=== PATIENT | male | born 1965 | race Caucasian/White ===

== ENCOUNTER 2020-03-30 10:55 | Observation (INO) | payer BC, SELFPAY ==
[2020-03-30] VITALS (7 sets, daily range): BP systolic 122–174; BP diastolic 75–106; PULSE 85–104; RESP 16–18; TEMP 36.4–36.9; O2SAT 96–100; BMI 40.0; BMI 39.5
--- NOTE | 2020-03-30 11:04 | EKG12_ITS ---
Test Reason : HYEPRGLYCEMIA Blood Pressure : / mmHG Vent. Rate : 091 BPM Atrial Rate : 091 BPM P-R Int : 198 ms QRS Dur : 092 ms QT Int : 350 ms P-R-T Axes : 017 016 -03 degrees QTc Int : 430 ms Normal sinus rhythm Inferior infarct , age undetermined Abnormal ECG Confirmed by ATUL CASTRO, HANDY ([id number]), news video editor JEAN MCPHERSON ([id number]) on 04/03/2020 9:33:20 AM Referred By: MARI Confirmed By:HANANE POLLARD MD
--- NOTE | 2020-03-30 11:06 | ED.VIS.GEN ---
History of Present Illness Chief Complaint: Hyperglycemia Informant: Patient Onset: Days Context: Gradual Onset Timing: Continuous Current Severity: Moderate Maximum Severity: Moderate Narrative: The patient is a 54-year-old male with medical history significant for hypercholesterolemia and hypertension that presents to the emergency department with 30 pound weight loss, increased thirst, blurry vision, and increased urination. The patient was actually seen in the office by his primary care today. With his complaints, blood sugar was obtained. It was too high to measure. The patient was sent over for further evaluation. He denies any fevers or chills. He states that he has been mildly nauseated but has been trying to eat and drink. He states that over the past 3 weeks, he had a 30 pound weight loss. He has had impaired fasting glucose, but is never required any diabetic medication. He states he is otherwise been in his normal state of health. Prior similar symptoms: No Recent Illness/Hospitalization: No Past Medical History - Allergies and Home Meds Allergies/Adverse Reactions: Allergies No Known Allergies Allergy (Verified 03/30/20 12:12) Prior records reviewed: Yes Past Medical History: - - Hypertension, hyperlipidemia Surgical History: noncontributory Review of Systems General: Denies: Chills, Fever, Sweats Eyes: Denies: Visual changes - bilaterally, Diplopia ENT: Denies: Rhinorrhea, Sore throat Cardiovascular: Denies: Chest pain, Palpitations Respiratory: Denies: Dyspnea, Cough, Dyspnea on exertion Gastrointestinal: Denies: Abdominal pain, Nausea, Vomiting, Diarrhea, Melena, Hematochezia Genitourinary: Denies: Dysuria, Hematuria, Frequency Musculoskeletal: Denies: Back pain, Extremity Pain Skin: Denies: Rash, Wounds Neurological: Denies: Headache, Weakness, Numbness Endocrine: Reports: Polyuria, Polydipsia Physical Exam Vital Signs/Narrative: Vital Signs Temp Pulse Resp BP Pulse Ox 03/30/20 10:56 97.6 F L 98 16 122/86 H 97 Inital Vital Signs reviewed: Yes General: Well nourished, Well developed, No Acute Distress Head: Normocephalic, Atraumatic Eyes: Perrl, EOMI ENT: Moist mucous membranes, No rhinorrhea Neck: Supple, Nontender Cardiovascular: Regular rate, Regular rhythm, No murmurs Respiratory: No distress, CTA bilaterally, Chest nontender Abdomen: Soft, Nontender, Nondistended, Normal bowel sounds Back: Nontender, Normal Inspection Extremities: Nontender, No edema Skin: Normal color, No rash Neurological: Alert, Oriented x3, Cranial nerves II-XII grossly intact, Normal Strength, Normal Sensation Psychological: Normal affect, Normal Mood Diagnostic/Tx/Re-eval Abnormal Lab Results 03/30/20 03/30/20 03/30/20 11:35 11:35 11:35 WBC 20.7 H RBC 5.31 Hgb 16.4 Hct 45.3 MCV 85.3 MCH 30.9 MCHC 36.2 H RDW Std Deviation 36.1 RDW Coeff of Shweta 11.7 Plt Count 317 MPV 13.5 H Immature Gran % (Auto) 0.700 Neut % (Auto) 80.6 H Lymph % (Auto) 11.2 L [place] % (Auto) 7.1 Eos % (Auto) 0.0 Baso % (Auto) 0.4 Absolute Neuts (auto) 16.7 H Absolute Lymphs (auto) 2.32 Nucleated RBC % 0 Sodium 122 L Potassium 4.1 Chloride 87 L Carbon Dioxide 21.0 Anion Gap 14 BUN 29 H Creatinine 1.61 H Estim Creat Clear Calc 56.23 Est GFR (MDRD) Af Amer 57 L Est GFR (MDRD) Non-Af 47 L BUN/Creatinine Ratio 18.0 Glucose 582 H* Lactic Acid 2.6 H* Calcium 10.2 H Total Bilirubin 1.30 H AST 28 ALT 67 H Alkaline Phosphatase 75 Total Protein 8.2 Albumin 4.4 Globulin 3.8 Albumin/Globulin Ratio 1.2 Urine Color Urine Clarity Urine pH Ur Specific [place] Urine Protein Urine Glucose (UA) Urine Ketones Urine Occult Blood Urine Nitrite Urine Bilirubin Urine Urobilinogen Ur Leukocyte Esterase Urine RBC Urine WBC Ur Squamous Epith Cells Urine Bacteria Urine Mucus Acetone Level 03/30/20 03/30/20 11:35 11:40 WBC RBC Hgb Hct MCV MCH MCHC RDW Std Deviation RDW Coeff of Shweta Plt Count MPV Immature Gran % (Auto) Neut % (Auto) Lymph % (Auto) [place] % (Auto) Eos % (Auto) Baso % (Auto) Absolute Neuts (auto) Absolute Lymphs (auto) Nucleated RBC % Sodium Potassium Chloride Carbon Dioxide Anion Gap BUN Creatinine Estim Creat Clear Calc Est GFR (MDRD) Af Amer Est GFR (MDRD) Non-Af BUN/Creatinine Ratio Glucose Lactic Acid Calcium Total Bilirubin AST ALT Alkaline Phosphatase Total Protein Albumin Globulin Albumin/Globulin Ratio Urine Color Yellow Urine Clarity Sl. Cloudy Urine pH 6.0 Ur Specific [place] 1.015 Urine Protein Negative Urine Glucose (UA) 1000 H Urine Ketones 50 H Urine Occult Blood Negative Urine Nitrite Negative Urine Bilirubin Negative Urine Urobilinogen Normal Ur Leukocyte Esterase Negative Urine RBC 0 SEEN Urine WBC 0 SEEN Ur Squamous Epith Cells 0-5 SEEN Urine Bacteria 0 SEEN Urine Mucus 0 SEEN Acetone Level SMALL H - Medical Decision Making The patient presents with likely new onset diabetes. His blood sugar was too high to be read in the office. He has had polydipsia, polyuria, and generalized malaise along with weight loss. Metabolic work-up was pursued. Patient does have an elevated blood sugar of almost 600. He has a pseudohyponatremia. Is evidence of mild renal insufficiency and elevated lactic acid which I feel is likely prerenal from dehydration. Patient was given 2 L of IV fluids. EKG shows no acute ischemia. With the patient's electrolyte abnormalities and new onset diabetes, I do feel that he would benefit from admission for insulin therapy and rehydration. The patient was discussed with the hospitalist. Impression 1. New onset diabetes 2. Acute kidney injury 3. Lactic acidosis
[2020-03-30 11:57] LABS: Absolute Lymphocyte Count 2.32 X10^3/uL (0.83-4.51); Absolute Neutrophil Count 16.7 X10^3/uL (2.0-7.7); Basophil# 0.08 X10^3/uL; Basophil% 0.4 % (0-1); Hematocrit 45.3 % (40-54); Hemoglobin 16.4 g/dL (13.0-16.5); Lymphocyte # 2.32 X10^3/ul (4.0); Lymphocyte % 11.2 % (19-41); Mean Corp Hgb Conc 36.2 g/dL (32-36); Mean Corpuscular Hgb 30.9 pg (27.0-32.0); Mean Corpuscular Volume 85.3 fL (80-94); Mean Platelet Vol. 13.5 fl (6.2-12.0); Monocyte# 1.48 X10^3/uL; Monocyte% 7.1 % (0-10); NRBC Flagged by Analyzer 0 % (0-5); Neutrophil # 16.71 X10^3/uL (2.7-7.7); Neutrophil % 80.6 % (47-70); Platelet Count 317 K/mm3 (150-450); RBC Distribution Width CV 11.7 % (11.6-14.6); RBC Distribution Width SD 36.1 fl (35.1-43.9); Red Blood Count 5.31 M/mm3 (4.6-6.2); White Blood Count 20.7 K/mm3 (4.4-11.0)
[2020-03-30 11:57] LABS: Bacteria 0 SEEN /hpf (None Seen); Mucous, Urine 0 SEEN /hpf (<or=2+); Red Blood Cells-Urine 0 SEEN /hpf (0-5); White Blood Cells 0 SEEN /hpf (0-5)
[2020-03-30 12:02] LABS: Color, Urine Yellow (Yellow); Glucose, Dipstick 1000 mg/dl (Normal); Ketone-Dipstick 50 mg/dl (Negative); Leukocyte Esterase-Dipstick Negative /ul (Negative); Nitrite-Dipstick Negative (Negative); Occult Blood-Urine Negative /ul (Negative); Protein-Dipstick Negative (Negative); Specific Gravity, Urine 1.015 (1.002-1.030); Urine Bilirubin Dipstick Negative (Negative); Urine Clarity Sl. Cloudy (Clear); Urine Urobilinogen Normal (Normal)
[2020-03-30 12:08] LABS: Squamous Epithelial Cells - UA 0-5 SEEN /hpf (0-5)
[2020-03-30] MEDS: 0.9% Normal Saline 1,000 ML 1000 ML IV ×2 (12:16→13:17)
[2020-03-30 12:21] LABS: BUN 29 mg/dL (7-18); Creatinine, Serum 1.61 mg/dL (0.70-1.30); Estimated Creatinine Clearance 56.23 ml/min; Glucose 582 mg/dL (74-106)
[2020-03-30 12:22] LABS: ALB/GLOB Ratio 1.2 RATIO (0.9-2.4); AST(SGOT) 28 U/L (15-37); Alanine Aminotransfer ALT/SGPT 67 U/L (16-61); Albumin, Serum 4.4 g/dL (3.2-5.0); Alkaline Phosphatase 75 U/L (45-117); Anion Gap 14 (5-15); Calcium,Total 10.2 mg/dL (8.5-10.1); Chloride 87 mmol/L (98-107); EST Glomerular Filtration Rate 47 mL/min (>60); Est Glom Filt Rate - Afr Amer 57 mL/min (>60); Globulin 3.8 g/dL (2.2-4.2); Lactic Acid 2.6 mmol/L (0.4-1.9); Potassium 4.1 mmol/L (3.5-5.1); Protein, Total 8.2 g/dL (6.4-8.2); Sodium Level 122 mmol/L (136-145)
[2020-03-30] MEDS: Insulin Lispro 100 UNIT/ML INSULN.PEN 20 UNIT SC (12:45)
--- NOTE | 2020-03-30 13:51 | HP.PCM_ITS ---
Problem List (1) Hyperglycemia Status: Acute History of Present Illness Date of Admission: 03/30/20 Chief Complaint: polyuria The patient is a 54 year old M 3 of diet-controlled diabetes presents with several months of increased polyuria, polydipsia, 30 pound weight loss and fatigue. Was concerned and presented to his primary care physician who had checked his blood sugar and it was unmeasurable so the patient was sent to the emergency room. In the emergency room, the patient's blood sugar was noted to be 22, lactic acid 2.6, anion gap was normal at 14. Urinalysis was unremarkable. Patient received 20 units of NovoLog. [] Past Medical History Medical History: Medical History (Last Updated 03/30/20 @ 13:[address] Armen Arevalo DO) Hyperlipidemia E78.5 HTN (hypertension) I10 Allergies No Known Allergies Allergy (Verified 03/30/20 12:12) Surgical History: noncontributory Smoking Status: Never smoker Tobacco Use: Non-smoker Alcohol: Rare - *Family History Maternal Family History: Family History (Last Updated 03/30/20 @ 13:[address] Armen Arevalo DO) Other Diabetes Review of Systems Constitutional: Reports: Anorexia. Denies: Chills, Fever Eyes: Denies: Blurred vision, Double vision HEENT: Denies: Head Aches, Sinus Congestion, Sinus Drainage Cardiovascular: Denies: Chest Pain, Palpitations Respiratory: Denies: Cough, Shortness of breath at rest, Sputum production Gastrointestinal: Denies: Abdominal Pain, Nausea, Vomiting Genitourinary: Denies: Dysuria Musculoskeletal: Denies: Joint Pain, Joint Tenderness Skin: Denies: Dryness, Lesions Neurological: Denies: Numbness, Tingling, Focal weakness Hematologic/ Lymphatic: Denies: Easy Bruising, Easy Bleeding, Hx of blood clot Comment: All review of systems were negative except as mentioned above in the history of present illness and the other review of systems. VTE Information - Inpt Only VTE Present on Admission: No VTE Mechan Device Prophylaxis: None VTE Pharm Prophylaxis ordered?: No Reason prophylaxis not ordered:: Treatment Not Indicated Patient Problems: Active and Suspected Problems Hyperglycemia (Acute) - Physical Exam Vitals/I&O's: Vital Signs Temp Pulse Resp BP Pulse Ox 36.9 C 104 H 18 152/75 H 100 03/30/20 12:56 03/30/20 12:56 03/30/20 12:56 03/30/20 12:56 03/30/20 12:56 Oxygen Delivery Method Room Air Weight: 133.81 kg Body Mass Index (BMI) 40.0 Finger Stick Blood Glucose 576 Intake and Output for Last 24 Hours 03/28/20 03/29/20 03/30/20 23:59 23:59 23:59 Intake Total 1000 / 1000 Balance 1000 / 1000 General: Alert, No apparent distress HEENT: Atraumatic, Normocephalic Oral: Moist Mucosa, No Gingival or Mucosal Lesions/ Ulcerations Neck: No Nodes, Thyroid Normal Size and Texture Lungs: Clear to auscultation, Normal air movement, No rhonchi, No wheeze, No rales Cardiovascular: Regular rate, Regular Rhythm, Normal S1, Normal S2, No murmurs Abdomen: Bowel Sounds Present, Soft, Non Tender, Non-Distended, No Hepato- splenomegaly Extremities: No edema, No Calf Tenderness Skin: No rashes, No breakdown Musculoskeletal: No Tenderness to Palpation of Joints or Extremities, No Muscle Wasting Psych/Mental Status: Normal Affect, Appropriate Laboratory Results 03/30/20 11:35: WBC 20.7 H, RBC 5.31, Hgb 16.4, Hct 45.3, MCV 85.3, MCH 30.9, MCHC 36.2 H, RDW Std Deviation 36.1, RDW Coeff of Shweta 11.7, Plt Count 317, MPV 13.5 H, Immature Gran % (Auto) 0.700, Neut % (Auto) 80.6 H, Lymph % (Auto) 11.2 L, [place] % (Auto) 7.1, Eos % (Auto) 0.0, Baso % (Auto) 0.4, Absolute Neuts (auto) 16.7 H, Absolute Lymphs (auto) 2.32, Nucleated RBC % 0 03/30/20 11:35: Sodium 122 L, Potassium 4.1, Chloride 87 L, Carbon Dioxide 21.0, Anion Gap 14, BUN 29 H, Creatinine 1.61 H, Estim Creat Clear Calc 56.23, Est GFR (MDRD) Af Amer 57 L, Est GFR (MDRD) Non-Af 47 L, BUN/Creatinine Ratio 18.0, Glucose 582 H*, Calcium 10.2 H, Total Bilirubin 1.30 H, AST 28, ALT 67 H, Alkaline Phosphatase 75, Total Protein 8.2, Albumin 4.4, Globulin 3.8, Albumin/ Globulin Ratio 1.2 03/30/20 11:35: Lactic Acid 2.6 H* 03/30/20 11:35: Acetone Level SMALL H 03/30/20 11:40: Urine Color Yellow, Urine Clarity Sl. Cloudy, Urine pH 6.0, Ur Specific [place] 1.015, Urine Protein Negative, Urine Glucose (UA) 1000 H, Urine Ketones 50 H, Urine Occult Blood Negative, Urine Nitrite Negative, Urine Bilirubin Negative, Urine Urobilinogen Normal, Ur Leukocyte Esterase Negative, Urine RBC 0 SEEN, Urine WBC 0 SEEN, Ur Squamous Epith Cells 0-5 SEEN, Urine Bacteria 0 SEEN, Urine Mucus 0 SEEN Assessment/Plan All Active Problems Hyperglycemia (Acute) 1. Diabetes mellitus type 2, uncontrolled * Not in DKA at present. Received 20 units of NovoLog. * Plan is to continue with prandial insulin plus basal insulin this evening. Check an A1c. Have nutrition discussed the with the patient about dietary recommendations. * 20 to the patient that will need to follow-up with his primary care doctor in regards to further modification of his insulin therapy. Told patient that if he does lose weight and exercises in the future that is possible he could get off of insulin but now be a ways off. 2. hyponatremia * likely pseudohyponatremia given hyperglycemia +/- due to hypovolemia * will give IVF 3. leukocytosis * likely reactive due to uncontrolled DM2 * monitor * UA negative 4. DVT prophylaxis: low risk as he is ambulatory. Inpatient E&M: [id number] Init Hosp L3
[2020-03-30 15:48] LABS: Reflex Lactate? Y
[2020-03-30] MEDS: 0.9% Normal Saline 1,000 ML 150 ML IV ×2 (16:07→22:47)
[2020-03-30 16:16] LABS: Bedside Glucose 372 mg/dL (70-110)
[2020-03-30] MEDS: Insulin Lispro 100 UNIT/ML INSULN.PEN SC ×2 (16:17→16:18)
[2020-03-30 16:24] LABS: Hemoglobin A1c 10.3 % (3.8-5.6)
[2020-03-30 18:31] LABS: Lactic Acid 1.7 mmol/L (0.4-1.9)
[2020-03-30] MEDS: Acetaminophen 325 MG Tablet 650 MG PO (20:11)
[2020-03-30 21:41] LABS: Bedside Glucose 386 mg/dL (70-110)
[2020-03-30] MEDS: Glucerna Shake 120 ML LIQUID PO (21:43)
[2020-03-31 02:31] VITALS: BP 146/84; PULSE 77; RESP 18; TEMP 36.9; O2SAT 98
[2020-03-31] MEDS: 0.9% Saline Lock 10 ML Syringe IV (06:04)
[2020-03-31 06:13] LABS: Absolute Lymphocyte Count 3.25 X10^3/uL (0.83-4.51); Absolute Neutrophil Count 7.6 X10^3/uL (2.0-7.7); Basophil# 0.07 X10^3/uL; Basophil% 0.6 % (0-1); Eosinophil# 0.05 X10^3/uL; Eosinophils% 0.4 % (0-5); Hematocrit 39.8 % (40-54); Hemoglobin 14.3 g/dL (13.0-16.5); Lymphocyte # 3.25 X10^3/ul (4.0); Lymphocyte % 27.2 % (19-41); Mean Corp Hgb Conc 35.9 g/dL (32-36); Mean Corpuscular Volume 86.1 fL (80-94); Mean Platelet Vol. 12.9 fl (6.2-12.0); Monocyte# 0.93 X10^3/uL; Monocyte% 7.8 % (0-10); NRBC Flagged by Analyzer 0 % (0-5); Neutrophil % 63.4 % (47-70); Platelet Count 194 K/mm3 (150-450); RBC Distribution Width CV 11.6 % (11.6-14.6); RBC Distribution Width SD 36.5 fl (35.1-43.9); Red Blood Count 4.62 M/mm3 (4.6-6.2)
[2020-03-31 06:35] LABS: Bedside Glucose 379 mg/dL (70-110)
[2020-03-31 06:39] LABS: Anion Gap 9 (5-15); BUN 22 mg/dL (7-18); BUN/Creat Ratio 19.8 RATIO (10-20); Calcium,Total 8.1 mg/dL (8.5-10.1); Chloride 96 mmol/L (98-107); Creatinine, Serum 1.11 mg/dL (0.70-1.30); EST Glomerular Filtration Rate 73 mL/min (>60); Est Glom Filt Rate - Afr Amer 88 mL/min (>60); Estimated Creatinine Clearance 81.56 ml/min; Glucose 333 mg/dL (74-106); Potassium 3.7 mmol/L (3.5-5.1); Sodium Level 128 mmol/L (136-145)
[2020-03-31] MEDS: Insulin Lispro 100 UNIT/ML INSULN.PEN SC ×4 (08:36→11:50)
[2020-03-31 08:44] VITALS: BP 167/88; PULSE 89; RESP 18; TEMP 37.1; O2SAT 98
--- NOTE | 2020-03-31 09:27 | DS.PCM_ITS ---
Discharge Date and Diagnosis - Problem List Patient Problems: Active and Suspected Problems (Last Updated 03/30/20 @ 13:[address] Armen Arevalo DO) Hyperglycemia (Acute) Date of Admission: 03/30/20 Date of Discharge: 03/31/20 - Primary Discharge Diagnosis Acute Problems: Active Problems (Last Updated 03/30/20 @ 13:[address] Armen Arevalo DO) DM2 uncontrolled Hyponatremia Hospital Course and Treatment Operations: None Procedures: None Summary of Care Provided: The patient is a 54 year old M with weight loss, polyuria and polydipsia. Patient presented with a blood sugar primary care's office that was unreadable so presented to the emergency room where his blood sugar was measured as 2. Patient was not in diabetic ketoacidosis as he had a normal anion gap. Patient received short acting insulin as well as basal insulin blood sugars have improved to the 300s. Plan is to discharge patient with 30 units of insulin glargine as well as 8 units with meals. Patient's hemoglobin A1c was 10.3. Patient will receive glucometer, testing strips, lancets and needles as well as his insulin. Patient did have hyponatremia which component was certainly pseudohyponatremia given the hyperglycemia but not feeling improved today his blood sugar has improved. Component may be attributable to the HCTZ that he takes with his combination lisinopril/HCTZ. Recommend that be discontinued and for him to continue with his lisinopril. A prescription is sent for just the lisinopril. Patient informed that he could go off insulin altogether release have decreased dosing if he does not lose weight and exercise but that will be need to be done with his primary care physician. [] Patient Problems: Active and Suspected Problems (Last Updated 03/30/20 @ 13:[address] Armen Arevalo DO) Hyperglycemia (Acute) - Physical Exam Vitals/I&O's: Vital Signs Temp Pulse Resp BP Pulse Ox 37.1 C 89 18 167/88 H 98 03/31/20 08:44 03/31/20 08:44 03/31/20 08:44 03/31/20 08:44 03/31/20 08:44 Oxygen Delivery Method Room Air Weight: 132.177 kg Body Mass Index (BMI) 39.5 Finger Stick Blood Glucose 576 Intake and Output for Last 24 Hours 03/29/20 03/30/20 03/31/20 23:59 23:59 23:59 Intake Total 3000 / 3500 1500 / 1500 Output Total 1000 / 5 1075 / 1075 Balance 1999 425 / 425 General: Alert, No apparent distress HEENT: Atraumatic, Normocephalic Psych/Mental Status: Normal Affect, Appropriate Laboratory Results 03/30/20 11:35: WBC 20.7 H, RBC 5.31, Hgb 16.4, Hct 45.3, MCV 85.3, MCH 30.9, MCHC 36.2 H, RDW Std Deviation 36.1, RDW Coeff of [place] 11.7, Plt Count 317, MPV 13.5 H, Immature Gran % (Auto) 0.700, Neut % (Auto) 80.6 H, Lymph % (Auto) 11.2 L, [place] % (Auto) 7.1, Eos % (Auto) 0.0, Baso % (Auto) 0.4, Absolute Neuts (auto) 16.7 H, Absolute Lymphs (auto) 2.32, Nucleated RBC % 0 03/30/20 11:35: Sodium 122 L, Potassium 4.1, Chloride 87 L, Carbon Dioxide 21.0, Anion Gap 14, BUN 29 H, Creatinine 1.61 H, Estim Creat Clear Calc 56.23, Est GFR (MDRD) Af Amer 57 L, Est GFR (MDRD) Non-Af 47 L, BUN/Creatinine Ratio 18.0, Glucose 582 H*, Calcium 10.2 H, Total Bilirubin 1.30 H, AST 28, ALT 67 H, Alkaline Phosphatase 75, Total Protein 8.2, Albumin 4.4, Globulin 3.8, Albumin/Globulin Ratio 1.2 03/30/20 11:35: Lactic Acid 2.6 H* 03/30/20 11:35: Acetone Level SMALL H 03/30/20 11:35: Hemoglobin A1c 10.3 H 03/30/20 11:40: Urine Color Yellow, Urine Clarity Sl. Cloudy, Urine pH 6.0, Ur Specific [place] 1.015, Urine Protein Negative, Urine Glucose (UA) 1000 H, Urine Ketones 50 H, Urine Occult Blood Negative, Urine Nitrite Negative, Urine Bilirubin Negative, Urine Urobilinogen Normal, Ur Leukocyte Esterase Negative, Urine RBC 0 SEEN, Urine WBC 0 SEEN, Ur Squamous Epith Cells 0-5 SEEN, Urine Bacteria 0 SEEN, Urine Mucus 0 SEEN 03/30/20 16:11: POC Glucose 372 H 03/30/20 17:55: Lactic Acid 1.7 03/30/20 21:37: POC Glucose 386 H 03/31/20 05:54: WBC 12.0 H, RBC 4.62, Hgb 14.3, Hct 39.8 L, MCV 86.1, MCH 31.0, MCHC 35.9, RDW Std Deviation 36.5, RDW Coeff of Shweta 11.6, Plt Count 194, MPV 12.9 H, Immature Gran % (Auto) 0.600, Neut % (Auto) 63.4, Lymph % (Auto) 27.2, [place] % (Auto) 7.8, Eos % (Auto) 0.4, Baso % (Auto) 0.6, Absolute Neuts (auto) 7.6, Absolute Lymphs (auto) 3.25, Nucleated RBC % 0 03/31/20 05:54: Sodium 128 L, Potassium 3.7, Chloride 96 L, Carbon Dioxide 23.0, Anion Gap 9, BUN 22 H, Creatinine 1.11, Estim Creat Clear Calc 81.56, Est GFR (MDRD) Af Amer 88, Est GFR (MDRD) Non-Af 73, BUN/Creatinine Ratio 19.8, Glucose 333 H, Calcium 8.1 L 03/31/20 06:28: POC Glucose 379 H Current Medications Acetaminophen (Tylenol) 650 mg PO Q6H PRN PRN PRN Reason: Pain Score 1-10/Temp > 100.7 F Last Admin: 03/30/20 20:11 Dose: 650 mg Documented by: Dextrose (D50w Syringe) 0 gm IV X1 PRN; Protocol PRN Reason: Hypoglycemia Glucagon () 1 mg IM .X1 PRN PRN Reason: Hypoglycemia Sodium Chloride () 250 mls @ 15 mls/hr IV .[id number] PRN PRN Reason: Saline Flush Sodium Chloride () 250 mls @ 15 mls/hr IV .[id number] PRN PRN Reason: Additional IVPB Infusion Ibuprofen (Motrin) 400 mg PO Q4H PRN PRN PRN Reason: Pain Score 1-10/Temp > 100.7 F Insulin Glargine (Lantus (Bkc)) 20 units SC QHS [facility] Last Admin: 03/30/20 21:43 Dose: 20 u Documented by: Insulin Human Lispro (Humalog Kwikpen (Bkc)) 5 unit SC BREAKFAST [facility] Last Admin: 03/31/20 08:36 Dose: 5 units Documented by: Insulin Human Lispro (Humalog Kwikpen (Bkc)) 5 unit SC DINNER [facility] Last Admin: 03/30/20 16:17 Dose: 5 u Documented by: Insulin Human Lispro (Humalog Kwikpen (Bkc)) 5 unit SC LUNCH KRISTIN Insulin Human Lispro (Humalog Kwikpen (Bkc)) 0 unit SC TIDAC [facility]; Protocol Last Admin: 03/31/20 08:37 Dose: 6 u Documented by: Nutritional Formula (Lactose Free) (Glucerna Shake) 120 ml PO 4X/DAY [facility] Last Admin: 03/30/20 21:43 Dose: 120 ml Documented by: Ondansetron HCl (Zofran) 4 mg IV Q8H PRN PRN PRN Reason: NAUSEA/VOMITING Sodium Chloride () 10 - 40 ml IV UD PRN PRN Reason: SALINE FLUSH Last Admin: 03/31/20 06:04 Dose: 10 ml Documented by: Discharge Diet: 1800 Calorie Control Diet Home Medications: Medications to take at Discharge Simvastatin [Zocor] 10 mg PO QHS 03/30/20 Insulin Glargine [Lantus SoloStar Pen] 30 units SUBCUT QHS #1 pen 03/31/20 Insulin Lispro [Humalog KwikPen] 8 unit SUBCUT TIDCM #1 insuln.pen 03/31/20 Lisinopril [Zestril] 20 mg PO DAILY #30 tab 03/31/20 [place], Insulin Disposable [Novofine Autocover 30G Needle] 1 ea MISCELL. UD #1 box 03/31/20 Following Prescriptions Were Given to Patient: Insulin Lispro [Humalog KwikPen] 8 unit SUBCUT TIDCM #1 insuln.pen Transmission Status: Pending to [id number] Insulin Glargine [Lantus SoloStar Pen] 30 units SUBCUT QHS #1 pen Transmission Status: Pending to [id number] [place], Insulin Disposable [Novofine Autocover 30G Needle] 1 ea MISCELL. UD #1 box Transmission Status: Pending to [id number] Lisinopril [Zestril] 20 mg PO DAILY #30 tab Transmission Status: Pending to [facility]acy #[id number] Other Amb Orders: Glucometer Location: None Selected Primary Care Physician: Rah Stringer, INSURANCE APPLICATION INVESTIGATOR-C [Primary Care Provider] - Within 1 Week Disposition: Home Minutes spent on discharge:: 32 Patient Condition:: Good Medical Necessity - Tobacco Use Smoking Status: Never smoker Tobacco Use: Non-smoker Meaningful Use Info Meaningful Use Diagnoses (Choose all that apply): None applicable
--- NOTE | 2020-03-31 09:32 | DCINST_ITS ---
- Discharge Diagnoses Current Active Problems: Current Active and Chronic Problems (Last Updated 03/30/20 @ 13:[address] Armen Arevalo, DO) Hyperglycemia (Acute) You will use the following diet at home:: Calorie/Carbohydrate Controlled (specify 1200, 1400, etc) - 1800 Your food should be the consistency of: Regular Your liquids should be the consistency of: Regular/Thin Discharge Activity: Return to Normal Activity Call your doctor if you observe: - - uncontrolled blood sugar. Allergies/Adverse Reactions: Allergies No Known Allergies Allergy (Verified 03/30/20 12:12) Medications to take at Discharge Simvastatin [Zocor] 10 mg PO QHS 03/30/20 Insulin Glargine [Lantus SoloStar Pen] 30 units SUBCUT QHS #1 pen 03/31/20 Insulin Lispro [Humalog KwikPen] 8 unit SUBCUT TIDCM #1 insuln.pen 03/31/20 Lisinopril [Zestril] 20 mg PO DAILY #30 tab 03/31/20 [place], Insulin Disposable [Novofine Autocover 30G Needle] 1 ea MISCELL. UD #1 box 03/31/20 The following prescriptions were given: Insulin Lispro [Humalog KwikPen] 8 unit SUBCUT TIDCM #1 insuln.pen Transmission Status: [id number] Insulin Glargine [Lantus SoloStar Pen] 30 units SUBCUT QHS #1 pen Transmission Status: Pending to [id number] [place], Insulin Disposable [Novofine Autocover 30G Needle] 1 ea MISCELL. UD #1 box Transmission Status: [id number] Lisinopril [Zestril] 20 mg PO DAILY #30 tab Transmission Status: [id number] Orders to be completed after discharge: Glucometer Location: None Selected Primary Care Physician: Rha Stringer, KAYLEE-C [Primary Care Provider] - Within 1 Week Test Results: Test results from this visit will be discussed in further detail at your follow- up appointment, if applicable. Proposed Discharge Date: 03/31/20
--- NOTE | 2020-03-31 09:56 | CASEMGMT ---
RN CM Assessment Note Intro role of CM to patient in room. Pt is awake alert and able to participate in assessment. Pt will be discharged today. He states nursing has shown him how to check blood sugars and give insulin. RN CM discussed if questions arise to call PCP office and speak to nurse. Gallery Manager saw patient and information was given. Presentation: 30# weight loss, polyuria polydipsia Diagnosis: Hyperglycemia PMH: diet controlled diabetes PCP: Dr. Arevalo Insurance: [facility] Pharmacy: [facility]. Call to pharmacy- per staff @ [facility], no issues processing prescriptions, no prior auths needed. Pt will take glucometer script to pharmacy. Prescription Benefit: yes LNOK: Yuliana Loyd Living Arrangements: Lives Tranportation: drives DME: none Patient DC Goals: Home today DC Plan: Home today. CM available for discharge planning coordination. Contact CM for any concerns/needs that may arise. Kaylynn VASQUEZ RN ACM
[2020-03-31 11:55] VITALS: BP 160/88; PULSE 92; RESP 18; TEMP 36.7; O2SAT 98
[2020-03-31 12:05] LABS: Bedside Glucose 321 mg/dL (70-110)
== END 2020-03-31 12:12 | disposition home or self-care (01) | DRG 639 ==
LOC: ED 12:35 → MS3 03-31 07:40
PROVIDERS: Emergency Provider Emergency Medicine; PCP Nurse Practitioner Family
DX: E11.65 Type 2 diabetes mellitus with hyperglycemia (principal); D72.829 Elevated white blood cell count, unspecified; I10 Essential (primary) hypertension; Z79.899 Other long term (current) drug therapy; E87.1 Hypo-osmolality and hyponatremia; E78.5 Hyperlipidemia, unspecified; E87.2 Acidosis
CPT/HCPCS: 36415; 80048; 80053; 81001; 82009; 82962; 83036; 83605; 85025; 93005; 96360; 96361; 97802; 99218; 99285; J7030; A4216; G0378

== ENCOUNTER → 2024-07-14 | Outpatient (CLI) | payer BC, SELFPAY | END | disposition home or self-care (01) | PROVIDERS: PCP Nurse Practitioner Family; Referring Provider Physician Assistant; Visit Provider Physician Assistant | DX: S89.90XA Unspecified injury of unspecified lower leg, initial encounter (principal); T14.90XA Injury, unspecified, initial encounter | CPT/HCPCS: 73552; 73562 ==

== ENCOUNTER → 2024-07-19 | Outpatient (CLI) | payer BC, SELFPAY | END | disposition home or self-care (01) | PROVIDERS: PCP Nurse Practitioner Family; Referring Provider Orthopaedic Surgery Sports Medicine; Visit Provider Orthopaedic Surgery Sports Medicine | DX: S76.111A Strain of right quadriceps muscle, fascia and tendon, initial encounter (principal); S80.01XA Contusion of right knee, initial encounter | CPT/HCPCS: 73721 ==

== ENCOUNTER 2024-07-21 05:51 | Day surgery (SDC) | payer OTHER, BC, SELFPAY ==
[2024-07-21] VITALS (11 sets, daily range): BP systolic 121–155; BP diastolic 61–95; PULSE 53–78; RESP 16–18; TEMP 36.3–36.8; O2SAT 98–100; BMI 40.5
--- NOTE | 2024-07-21 06:40 | PRE.ANES_ITS ---
ASA Classification* ASA Classification ASA Classification: 3 Assessment & Plan Anesthesia* Anesthesia Assessment Anesthesia Assessment: Discussed sedation and/or anesthesia options, risks, benefits, and alternatives with patient/parents/legal guardian/POA. Questions invited. The patient/parents/legal guardian/POA seems to understand and agrees to proceed with anesthesia plan. Reviewed the physical assessment, medical history, allergy history and patient home medications list prior to surgery/procedure/anesthetic and documented any changes. Performed airway and anesthesia risk assessments. Anesthesia Type Anesthesia Type: General (Possible Block consented if surgeon request consented) Anesthesia Focused Assessment* Temperature: 97.3 F Pulse Rate: 74 Blood Pressure: 155/77 Respiratory Rate: 16 Pulse Ox: 100 Airway Assessment Mouth opens: >3 cm Mallampati Score: II Focused Labs Anesthesia Preop lab: CBC WBC 12.0 K/mm3 (4.4-11.0) H 03/31/20 05:54 RBC 4.62 M/mm3 (4.6-6.2) 03/31/20 05:54 Hgb 14.3 g/dL (13.0-16.5) 03/31/20 05:54 Hct 39.8 % (40-54) L 03/31/20 05:54 Plt Count 194 K/mm3 (150-450) 03/31/20 05:54 CHEMISTRY Potassium 3.7 mmol/L (3.5-5.1) 03/31/20 05:54 Sodium 128 mmol/L (136-145) L 03/31/20 05:54 BUN 22 mg/dL (7-18) H 03/31/20 05:54 Creatinine 1.11 mg/dL (0.70-1.30) 03/31/20 05:54 Glucose 333 mg/dL (74-106) H 03/31/20 05:54 POC Glucose 321 mg/dL (70-110) H 03/31/20 11:46 COAG Pre-Assessment Diagnosis/Proposed Procedure Planned Operative Procedure(s): REPAIR, QUADRICEPS TENDON Anesthesia History 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 When Was Last Pacemaker Check QUESTION #4 FULL TEXT: You/Your Family Experience fever (hyperthermia) with Anesthesia Last Oral Intake Last Oral intake: Last Oral Intake NPO since 00:00 07/21/24 06:24 Meds taken in AM with sips of water? Meds patient instructed to take am of surgery PONV PONV - milling operator: PONV - milling operator Female No 07/20/24 12:49 HX of Motion Sickness No 07/20/24 12:49 HX of N/V After Surgery No 07/20/24 12:49 Non-Smoker Yes 07/20/24 12:49 Duration of Surgery greater No 07/20/24 12:49 than 60 minutes Number of Risk Factors 1 07/20/24 12:49 PONV Score Low Risk 07/20/24 12:49 Height & Weight Height & Weight: Anesthesia: Height & Weight Height 6 ft 07/21/24 06:24 Weight: 135.624 kg 07/21/24 06:24 Body Mass Index (BMI) 40.5 07/21/24 06:24 Respiratory Assessment Respiratory Assessment - milling operator: Respiratory Tract Infection Hx - milling operator Hx Respiratory Tract Infection No 07/20/24 12:49 STOP Sleep Apnea STOP Sleep Apnea - milling operator: STOP Sleep Apnea - milling operator Hx Hypertension No 07/20/24 12:49 Hx Sleep Apnea No 07/20/24 12:49 CPAP BIPAP Do you snore loudly (louder Yes 07/20/24 12:49 than talking or can be heard Do you often feel tired/ No 07/20/24 12:49 fatigued/ sleepy during daytime? Has anyone observed you stop No 07/20/24 12:49 breathing during sleep? STOP Results Negative 07/20/24 12:49 QUESTION #5 FULL TEXT : Do you snore loudly (louder than talking or can be heard through closed doors)? 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 Specify any problems Hx of Preganancy in last 3 N/A 07/20/24 12:49 Months Nurse Filling Out Transfusion NBUCHER 07/20/24 12:49 & Questions: Date: 07/20/24 07/20/24 12:49 Time: 12:50 07/20/24 12:49 Patient unable to answer at this time (ie. confused, unrespo /Reproduction History /Reproductive History - milling operator: /Reproductive Hx- milling operator Hx Now No 07/20/24 12:49 Gestational Age (in weeks): EDC: Hx Hx Para Hx Section SAB No 07/20/24 12:49 Active Medications Active Medications: Current Medications Generic Name Dose Route Start Last Admin Trade Name Freq PRN Reason Stop Dose Admin Cefazolin Sodium 3 gm/ N/A 30 mls @ 600 mls/hr 07/21/24 07:30 IV 07/21/24 07:32 PREOP ONE Lactated Ringer's 1,000 mls @ 15 mls/hr 07/21/24 06:15 IV 07/26/24 19:34 .Q48H [facility] Protocol PFSH Medical History Wears glasses Insulin dependent diabetes mellitus Diabetes High cholesterol Vertigo Rupture of right quadriceps tendon Contusion of right knee Strain of right quadriceps Hyperlipidemia HTN (hypertension) Home Medications ?Medication ?Instructions ?Recorded ?Last Taken ?Type simvastatin 10 mg tablet 10 mg PO QHS cholesterol 03/30/20 07/20/24 History lisinopril 20 mg tablet 20 mg PO DAILY #30 tabs 03/31/20 07/20/24 Rx pen needle, diabetic, safety 30 ##1 08/07/20 Unknown Rx gauge x 1/3 insulin glargine 100 unit/mL (3 18 unit subcut QHS 07/19/24 Unknown History mL) subcutaneous pen Allergy/AdvReac Type Severity Reaction Status Date / Time No Known Allergies Allergy Verified 07/21/24 06:22 Family History Other Diabetes Surgical History History of colonoscopy Social History Smoking Status: Never smoker Review of Systems (Anesthesia) ROS Narrative System reviewed and no additional complaints, except as documented.
[2024-07-21] MEDS: Lactated Ringers 1,000 ML 15 ML IV ×2 (06:42→09:40)
--- NOTE | 2024-07-21 07:01 | HP.PCM_ITS ---
HPI - General HPI Narrative NATALIE BRIONES, is a 58 M who presents for right open quadriceps tendon repair. no changes to h and p. right knee marked. dr reynolds anesthesia. rab, post op instructions and narcotic counselling. plan for asa 81 BID post op for vte prophylaxis. ok to proceed, no further questions. MR#: [id number] Acct: [id number] Name: NATALIE BRIONES Rep #: [id number] : 1965 Provider: Dr. Jigar Madrid MD Age/Sex: 58/M Location: [facility] [place] Status: Signed Intake Vital Signs 03/30/2015:35 Height 6 ft Intake Visit Reasons: right knee Chief Complaint: MRI review Accompanied by: Is patient in pain?: Yes Allergies No Known Allergies Allergy (Verified 07/20/24 13:29) Medications ?Medication ?Instructions ?Recorded ?Confirmed ?Type simvastatin 10 mg tablet 10 mg PO QHS cholesterol 03/30/20 07/20/24 History lisinopril 20 mg tablet 20 mg PO DAILY #30 tabs 03/31/20 07/20/24 Rx pen needle, diabetic, safety 30 ##1 03/31/20 07/20/24 Rx gauge x 1/3 insulin glargine 100 unit/mL (3 18 unit subcut QHS 07/19/24 07/20/24 History mL) subcutaneous pen PFSH Medical History Wears glasses Insulin dependent diabetes mellitus Diabetes High cholesterol Vertigo Rupture of right quadriceps tendon Contusion of right knee Strain of right quadriceps Hyperlipidemia HTN (hypertension) Surgical History History of colonoscopy Family History Other Diabetes Social History Smoking Status: Never smoker HPI right knee Details: This documentation accurately reflects the service provided and the decisions made by me, Dr. Jigar Madrid MD 07/20/24 4086. Part of today?s visit was documented by [ ], acting as scribe. NATALIE BRIONES is a 58 year old M here today for follow-up right knee MRI to assess for distal quadriceps rupture Ortho Exam General General: Yes no acute distress Neurologic: Yes alert and Yes oriented x3 Psychologic: Yes reasonable and appropriate Supplemental Info [facility] Imaging Services [address] [place], [place] [address] Lower Ext Joint Only (Routine) MR#: [id number] Acct: [id number] Name: NATALIE BRIONES Rep #: [id number] : 1965 M 58 From: Weston Bell MD PCP: Rah Stringer, CHILD DEVELOPMENT DIRECTOR-C Status: REG CLI Study: Lower Ext Joint Only (Routine) Date of Exam: 07/19/24 Exam# [id number] Ordering Dr: Jigar Madrid MD STUDY: MRI RIGHT KNEE REASON FOR EXAM: Male, 58 years old. Quadriceps tendon tear TECHNIQUE: Standardized fat and water weighted pulse sequences were obtained in all 3 orthogonal planes. COMPARISON: X-ray July 14, 2024 FINDINGS: Normal medial meniscus. Normal hyaline cartilage of the medial femorotibial compartment. Normal medial femoral condyle and tibial plateau. Normal medial collateral ligamentous complex (MCL). Normal distal semimembranosus, gracilis and semitendinosus tendons. Normal lateral meniscus. Normal hyaline cartilage of the lateral femorotibial compartment. Normal lateral femoral condyle and tibial plateau. Normal proximal tibiofibular articulation. Normal lateral collateral (fibular) ligament. Normal popliteus tendon. Normal biceps femoris tendon. Normal anterior cruciate ligament (ACL). Normal posterior cruciate ligament (PCL). Normal congruent patellofemoral articulation. Normal hyaline cartilage of the patellofemoral compartment. Normal medial and lateral patellar retinaculum. There is rupture with full-thickness tear of the rectus femoris and vastus intermedius of the distal quadriceps tendon series 5 images 29 through 43. Normal patellar tendon. Normal Hoffa''s fat pad. There is a moderate volume joint effusion. There is superior and anterior soft tissue swelling. The otherwise visualized osseous structures are unremarkable. MRI/Lower Ext Joint Only (Routine) IMPRESSION: Quadriceps tendon tear. Joint effusion. Soft tissue swelling. Electronically Signed: Weston Bell MD at 18:14 EST Reading Location ID and State: [address] [place] [address] , Service support , I independently reviewed the imaging. Concur with radiologist report. Coding Level of Care Code Off vis,est,level 4 Diagnoses Rupture of right quadriceps tendon S76.111A Assessment and Plan Assessment and Plan (1) Rupture of right quadriceps tendon: Status: Acute Plan: 58-year-old man with a right distal quadriceps rupture. Explained the diagnosis prognosis different treatment options available. Typically these are treated surgically. Nonsurgical management would result in extensor lag very difficult walking contraction of the quadriceps and other problems. Surgery is indicated for repair in this case. We discussed the pros cons risk benefits of that. I have consented the patient for surgery. He does have diabetes that would be a risk factor for poor tendon healing infection and other problems. The patient understands signed the consent form for right open quadriceps tendon repair. We will try to get this done tomorrow morning. Pros and cons risks and benefits were discussed with the patient including but not limited to infection, pain, stiffness, bleeding, damage to surrounding structures, neurovascular injury, recurrence or retear, failure or wear of hardware or fixation, instability, fracture, deep vein thrombosis and pulmonary embolism, anesthetic risks, , patient dissatisfaction, need for further surgery and other risks. Patient understood and wished to proceed with surgery, and signed the informed consent documentation. [facility] Medical History Wears glasses Insulin dependent diabetes mellitus Diabetes High cholesterol Vertigo Rupture of right quadriceps tendon Contusion of right knee Strain of right quadriceps Hyperlipidemia HTN (hypertension) Home Medications ?Medication ?Instructions ?Recorded ?Last Taken ?Type simvastatin 10 mg tablet 10 mg PO QHS cholesterol 03/30/20 07/20/24 History lisinopril 20 mg tablet 20 mg PO DAILY #30 tabs 03/31/20 07/20/24 Rx pen needle, diabetic, safety 30 ##1 03/31/20 Unknown Rx gauge x 1/3 insulin glargine 100 unit/mL (3 18 unit subcut QHS 07/19/24 Unknown History mL) subcutaneous pen Allergy/AdvReac Type Severity Reaction Status Date / Time No Known Allergies Allergy Verified 07/21/24 06:22 Family History Other Diabetes Surgical History History of colonoscopy Social History Smoking Status: Never smoker Vital Signs Vital Signs Vital Signs: 07/21/24 06:24 07/21/24 06:24 07/21/24 06:40 Temperature 97.3 F L 97.3 F L Temperature Source Temporal Pulse Rate 74 74 Respiratory Rate 16 16 Respiratory Pattern Normal Blood Pressure 155/77 H 155/77 H Blood Pressure Mean 103 Blood Pressure Source Monitor Blood Pressure Position Sitting Blood Pressure Location Left Arm Pulse Ox 100 100 Oxygen Delivery Method Room Air Weight Weight: 299 lb Body Mass Index (BMI) 40.5
[2024-07-21] MEDS: Cefazolin 3 GM in Syringe 1 EACH IV (07:22)
[2024-07-21 08:54] LABS: Bedside Glucose 149 mg/dL (74-106)
[2024-07-21] MEDS: Bupivacaine Mpf 0.5% 30 ML VIAL (08:55)
--- NOTE | 2024-07-21 09:11 | OP.PCM_ITS ---
Problems Associated Problem List Diagnoses (1) Rupture of right quadriceps tendon: Operative Report (Standard) Operative Information Surgery/Procedure Performed: R open quadriceps tendon repair Surgeon: Jigar Madrid Date of Procedure: 07/21/24 Procedure Start Time: 07:47 Procedure Stop Time: 09:05 Pre-Operative Diagnosis: R quadriceps tendon rupture Post-Operative Diagnosis: same Select all DRAINS/GRAFTS/IMPLANTS that apply: Implanted device Implanted device details: arthrex 4.75mm swivelock anchors x 2 Type of Anesthesia: General and Local Estimated Blood Loss: 20 Specimen collected: No Description of surgery: Patient brought to the operating room theater. Placed supine on the table. General anesthesia induced. All bony prominences padded. SCD on the nonoperative leg. 3 g IV Ancef administered prior to the start of the case. Bump under the right thigh. Tourniquet applied to the right thigh appropriately padded. All bony prominences padded. Lower extremity prepped and draped in the usual sterile fashion with chlorhexidine-based prep solution allowing over 3 minutes drying time prior to draping. Preoperative timeout performed to confirm site patient and the surgery. Began by elevating the limb inflated the tourniquet to 250 mmHg. Made a standard longitudinal incision centered over the distal quadriceps tendon. Carried the dissection down through skin and subcutaneous tissue achieved meticulous hemostasis. Identified the site of the quadriceps tendon rupture. Full-thickness rupture as well as tearing into the medial and lateral retinaculum's. Began by debriding the edges of the tear cleaning up the tear removing and releasing any scar tissue to fully mobilized the tendon. I then turned my attention to the proximal patella and prepared this using rongeur's rasps and removing any remaining soft tissue attached to the proximal pole of the patella, slight decortication. I then used Arthrex fiber tape suture #5 suture tape. I passed this in a running locking Krak?w stitch up and down the tendon on the medial and lateral aspect of the tendon to create 4 suture limbs. These were exiting the inferior aspect of the quadriceps tendon distally. Good secure attachment and mobilization of the tendon. I then turned my attention to creating the 2 bone tunnels for the swivel lock anchors. I used the drill and tap I created good solid fixation points. I then also used a 1.5 mm drill to drill a number of small bony holes to create a bleeding bed for healing. Tourniquet let down, meticulous hemostasis. I passed the free suture limbs through the 2 anchors and then tap the anchors into place and fully seated the anchors and cutting the suture short. I then used the stay sutures to repair the retinaculum's on both sides as well as a small amount of superficial quadriceps tendon tissue anteriorly. Repair was solidly fixated and tested up to 30 degrees with no gapping. Wound thoroughly irrigated. Subcutaneous tissue closed with 2-0 Vicryl suture and skin with 3-0 Monocryl. Skin cleaned with wet and dry dressing. 10 cc of half percent bupivacaine instilled in and around the soft tissue site. Steri- Strips followed by Adaptic 4 x 4 gauze ABD dressing and gigi wrap loosely wrapped followed by the hinged knee brace locked in full extension. Patient woken up from the general anesthetic transferred off the operating table and taken to postanesthetic care unit in stable condition. All sponge needle instrument counts were correct no complications plan for the patient weightbearing as tolerated with crutches with a knee in full extension for the first 2 to 3 weeks. Follow-up in the office in 2 weeks time. ASA 81 mg twice daily for VTE prophylaxis. cpt 55010 Surgical Findings: R quads tendon tear Grinder Brake Lining coke oven mason: Yes Supervisor Prepress: gregory Tasks completed by first coat operator: Retracting Additional assistant service manager?: No Complications Complications: No Admit VTE Documentation VTE Present on Admission: No VTE Mechan Device Prophylaxis: SCD's VTE Pharm Prophylaxis ordered?: Yes Procedures Musculoskeletal 20xxx-29xxx: Other Procedure See Report
--- NOTE | 2024-07-21 09:18 | PCM.POST.ANE ---
Anesthesia: Postop Eval I Current Vital Signs Temperature: 97.5 F Pulse Rate: 68 Blood Pressure: 128/68 Respiratory Rate: 16 Pulse Ox: 98 Oxygen Delivery Method: Room Air Assessment Airway patent: Yes Spontaneous unlabored respirations: Yes Mental status: Awake nausea: No Vomiting: No Anesthesia Complication: No Fluid Hydration Crystalloid volume administer (ml): 800 Total IV fluid infused: 800 Progress Note Anesthesia document: Postop Eval 1 completed: Yes
--- NOTE | 2024-07-21 09:22 | EX.PCM.DISCH ---
Discharge Instructions Diet Discharge Diet: No restrictions Activity Discharge Activity: Use Crutches Ice area for (Minutes): 10 Weight Bearing Status: Weight bearing as tolerated Lifting Restrictions: keep leg straight at all times Keep extremity elevated above heart level: Operative Extremity Dressing / Incision Call your doctor if your incision/area has: Continuous Slow Oozing, Sudden Increased Bleeding, Increased Pain/ Swelling, Increased Redness, Foul Smelling Discharge and Swelling at the incision site Call your doctor if you observe: Fever of 101 or Higher, Coldness, Increased Pain and Numbness or Tingling Remove Dressing in: leave in place till F/U Cleanse incision/area with: Do not get Incision Wet Follow Up Care Please Follow Up With: Jigar Madrid MD When: week of august 02 Test Results: Test results from this visit will be discussed in further detail at your follow-up appointment, if applicable. Discharge Plan Admission Attending Provider: Jigar Madrid Primary Care Provider: Rah Stringer NP Instructions Print Language: Congolese Discharge Orders/Prescriptions Prescriptions: New oxycodone-acetaminophen [Endocet] 5-325 mg tablet 1 tab PO Q4H MDD 6 PRN (Reason: pain) 5 Days Qty: 20 0RF No Action insulin glargine 100 unit/mL (3 mL) insulin pen 18 unit subcut QHS simvastatin 10 MG tablet 10 mg PO QHS lisinopril 20 MG tablet 20 mg PO DAILY Qty: 30 0RF (DME) pen needle, diabetic, safety 1 EACH needle 1 ea MISCELL. UD Qty: 1 1RF Referrals / Follow Up: Jigar Madrid MD [Med Staff - Active Staff] - Rah Stringer NP, DYE RANGE TENDER-C [Primary Care Provider] - Disposition Disposition (needs filled in before D/C Order can be placed): Home, Self Care
--- NOTE | 2024-07-21 09:56 | POSTOPAN2_ITS ---
Anesthesia Postop Eval I Sum Postop Eval Completion status Anesthesia document: Postop Eval 1 completed: Yes Anesthesia Postop Eval I Summary Anesthesia Postop Eval I Summary: Anesthesia Postop Eval I: Assessment Summary Airway patent Yes 07/21/24 09:19 PRIVATE INVESTIGATOR SURVEILLANCE.JDEF Spontaneous unlabored Yes 07/21/24 09:19 PRIVATE INVESTIGATOR SURVEILLANCE.JDEF respirations Mental status Awake 07/21/24 09:19 PRIVATE INVESTIGATOR SURVEILLANCE.JDEF nausea No 07/21/24 09:19 PRIVATE INVESTIGATOR SURVEILLANCE.JDEF Vomiting No 07/21/24 09:19 PRIVATE INVESTIGATOR SURVEILLANCE.JDEF Anesthesia Postop Eval I: Fluid Summary Crystalloid volume administer 800 07/21/24 09:19 PRIVATE INVESTIGATOR SURVEILLANCE.JDEF (ml) Colloids volume administered ( ml) Blood Product volume administered (ml) Total IV fluid infused 800 07/21/24 09:19 PRIVATE INVESTIGATOR SURVEILLANCE.JDEF Anesthesia Postop Eval I: Summary Notes Anesthesia Complication No 07/21/24 09:19 PRIVATE INVESTIGATOR SURVEILLANCE.JDEF Anesthesia Complication Comment: Post-operative progress note Anesthesia: Postop Eval II Evaluation Mental status: Awake Pain Level: 4 nausea: No Vomiting: No
--- NOTE | 2024-07-21 09:56 | PCM.POSTANE2 ---
Anesthesia Postop Eval I Sum Postop Eval Completion status Anesthesia document: Postop Eval 1 completed: Yes Anesthesia Postop Eval I Summary Anesthesia Postop Eval I Summary: Anesthesia Postop Eval I: Assessment Summary Airway patent Yes 07/21/24 09:19 BUTT [email or web address] Spontaneous unlabored Yes 07/21/24 09:19 BUTT [email or web address] respirations Mental status Awake 07/21/24 09:19 BUTT [email or web address] nausea No 07/21/24 09:19 BUTT [email or web address].JDEF Vomiting No 07/21/24 09:19 BUTT [email or web address] Anesthesia Postop Eval I: Fluid Summary Crystalloid volume administer 800 07/21/24 09:19 BUTT [email or web address] (ml) Colloids volume administered ( ml) Blood Product volume administered (ml) Total IV fluid infused 800 07/21/24 09:19 BUTT [email or web address].JDEF Anesthesia Postop Eval I: Summary Notes Anesthesia Complication No 07/21/24 09:19 BUTT [email or web address] Anesthesia Complication Comment: Post-operative progress note Anesthesia: Postop Eval II Evaluation Mental status: Awake Pain Level: 4 nausea: No Vomiting: No
[2024-07-21] MEDS: Acetaminophen 325 MG Tablet PO (11:27)
[2024-07-21] MEDS: oxyCODONE 5 MG Tablet PO (11:29)
== END 2024-07-21 12:57 | disposition home or self-care (01) ==
LOC: SDC 05:51 → AC 05:51
PROVIDERS: PCP Nurse Practitioner Family; Referring Provider Orthopaedic Surgery Sports Medicine; Visit Provider Orthopaedic Surgery Sports Medicine
PROC: (CPT 27385; principal; 2024-07-21 07:15)
DX: S76.111A Strain of right quadriceps muscle, fascia and tendon, initial encounter (principal); Z79.4 Long term (current) use of insulin; E11.9 Type 2 diabetes mellitus without complications; X58.XXXA Exposure to other specified factors, initial encounter; I10 Essential (primary) hypertension; E78.00 Pure hypercholesterolemia, unspecified; Z79.899 Other long term (current) drug therapy
CPT/HCPCS: 27385; 01250; 64447; 82962; 97162; C1713; J7120; J2405

== ENCOUNTER 2024-12-15 18:00 | Outpatient (RCR) | payer OTHER, SELFPAY ==
--- NOTE | 2024-08-31 09:02 | HP.PTEVAL ---
Patient's Visit Information Visit Information Visit Information: NATALIE BRIONES is a 58 year old M referred to Physical Therapy by Dr. Jigar Madrid MD with a diagnosis of R quad tendon repair, DOS: 07/20/24. Date of Evaluation: 08/30/24 Physical Therapist: Narinder Sanchez DPT Visit Plan Frequency: 2-3x /Week Duration: 6 Weeks Plan: Focus initial PT on ROM progressing to 90dege and edema managememt 1) ROM progressing to 90deg., may use Nustep and manual PT to work on this. Progress HEP to increase consistency at home 2) foam rolling to quad for inhibition 3) quad isometric, OCK hip strengthening with RLE in TROM brace. 4) vaso for edema as needed. May progress once physician gives ok. Subjective Subjective: Pt. is here today for his initial evaluation with diagnosis of quad tendon repair. DOS: 07/20/24. Pt. reports falling backwards at work and his R leg got caught. He has been in a TROM brace locked in extension since. He does take off for showers, but he has not been doing any knee specific exercises at this point in time. Pt. is back to work on a modified duty mostly in office. He would normally be working on cars. Pt. is walking with good tolerance with WBing. Pt. reports no N/T in either LE. Pt. is reporting continued swelling in his leg. Pt. is hopeful to get back to all previous activities without limitations at this point in time. He was unsure if he had any future appt. with physician. I want them to look into that as physician will want to see him at some point along his progress. Pain RLE: Pain Intensity (Out of 10): 1 Pain Intensity Range: 0 and 2 Objective Objective: POSTURE: Pt. has increased wt. shift to L side in stance. Pt. is able to correct with VCing without increase in symptoms. PALPATION: Pt. has slight tenderness at superior aspect of patella, no issues with quad muscle. Pt. does have marked 1+ edema throughout distal LE. Pt. reports having his leg in dependent position throughout the day at work. NEURO: Pt. has normal sensation throughout BLEs. Pt. has normal achilles DTR. pt. is able to rise on toes without issues with balance assistance on wall. ROM: R knee: 0-0-55deg. Pt. was pretty tight into flexion today. He reports tightness and slight increase in pain as limiting factor. He reports this was the first time he has bent his knee since surgery. MMT: Pt. has a good quad set, 4/5 hip abd, SLR not tested. knee flex/ext not tested to due precautions. GAIT: Pt. ambulates without AD with good tolerance. He was initially walking with hip ER positioning. This improved with VCing. Balance/Special Test Scores Lower Extremity Functional Score: 28 Goals Goal 1:: LTG: Pt. to be I with HEP. Goal Time Frame: 4-6 Weeks Goal 2:: LTG: Pt. to have increased R knee flexion to 90deg. Goal Time Frame: 4-6 Weeks Goal 3:: LTG: Pt. to have normalized gait pattern with use of TROM brace locked in extension. Goal Time Frame: 4-6 Weeks Goal 4:: LTG: PT. to have 5/5 R hip strength without increase in symptoms. Goal Time Frame: 4-6 Weeks Rehabilitation Potential Physical Therapy Diagnosis: Pt. has signs and symptoms consistent with R quad tendon repair, DOS: 07/20/24. Pt. has marked hypombility, weakness, difficulty walking and increased edema. Pt. would benefit from PT to address the above limitations progressing back to all work and recreational activities without limitations. Rehabilitation Potential: Excellent Anticipated Interventions Patient/Client Instruction: Educate patient on: Condition, Plan of Care, Risk Factors and Benefits of Fitness Program For the Purpose of:: To improve decision making, To facilitate caregiver knowledge, To improve self management, To prevent re-injury, To improve ability to perform tasks related to life management and To improve tolerance to ADL's Therapeutic Exercise to Include: Strength training, Power training, Endurance training, Flexibilty training, Gait and locomotor training, Passive ROM, Active ROM and Dynamic Lumbar Stabilization For the Purpose of:: To decrease pain, To decrease swelling/inflammation, To increase ROM, To improve nutrient delivery to tissue, To increase oxygenation perfusion, To improve muscle performance and motor function, To improve ability to perform ADL's, To improve health of tissue, To decrease soft tissue restriction, To increase flexibility/ROM, To improve endurance and To improve balance Cryotherapy (ice pack, ice massage): Yes Vasopneumatic device: Yes For the Purpose of:: To decrease pain, To decrease swelling/inflammation and To increase ROM Text: Thank you for the opportunity to evaluate your patient. For Medicare and Medicare HMO plans, please review the plan of care and approve it. It will need to be FAXED BACK to us at [phone] for Medicare purposes. For Medicare only, by signing this I certify the plan of care. Please let me know if there are questions or concerns regarding this plan of care. Physician Signature: Date:
--- NOTE | 2024-10-21 07:18 | HP.PTREVAL ---
Re-Evaluation Intro: Dr. Jigar Madrid MD, It has been my pleasure to treat NATALIE BRIONES over the last 16 visits for R quad tendon repair, DOS: 07/20/24. Please see the progress note below for an update on the physical therapy plan of care! Subjective Subjective: Pt. reports overall doing better. He is out of his brace. He does have some issues with going down steps reciprocally. Pt. reports being able to put his socks and shoes on, but just started doing so. Pt. reports some tightness, more so than pain. Pt. is still having issues with getting up from under cars at work, sitting in low chairs. Pt. is to see physician in ~3 weeks. Objective Objective/Function: ROM: PROM 0-0-90deg in supine. Pt. had tightness and pain reported as limiting factor with flexion. Tightness noted in B HS as well. MMT: R knee: ext 35.5#, 40.0# LLE: knee: ext 57.2#, flexion 34.0#, SLR x20 no lag floor transfer: Pt. able to get into full kneeling, but has difficulty getting into half kneeling secondary to tightness. He had to get into a tripod like position with legs and use the table to help him self up. chair squat: pt. has difficulty getting to lower surfaces. He has to wt. shift to L side to do so. Slightly elevated chair he can complete normally. STAIRS: Pt. is able to ascend with 2 HR with more use of UEs during R loaded phase. With descending he has early heel off when loading RLE and increased wt shift to L side. GAIT: pt. has pretty decent gait pattern with out much issues. Overall he is still tight with knee flexion, I would love him to have ~10-15deg more of knee flexion to allow for better ability to complete job duties, ie floor transfers, getting in/out of small cars, as well as increase ease of sitting in lower chairs and descending steps. Plan Plan Plan: I am asking for more visits, x2 per week for 6 weeks. Working on increasing knee flexion, increasing his quad strength and increasing ability to complete floor transfers, chair squats and stairs. Balance/Gait/Functional tests Balance/Special Test Scores Lower Extremity Functional Score: 28 Goals Goals Goal 1:: LTG: Pt. to be I with HEP. Goal Time Frame: 4-6 Weeks Goal Progress: Goal Met Goal 2:: LTG: Pt. to have increased R knee flexion to 90deg. NEW GOAL (10/20/24): Pt. to have 105deg of R knee flexion allowing for increased ability to complete floor transfers, descend stairs and sit to lower surfaces. Goal Time Frame: 4-6 Weeks Goal Progress: Progressing Goal 3:: LTG: Pt. to have normalized gait pattern with use of TROM brace locked in extension. Goal Time Frame: 4-6 Weeks Goal Progress: Goal Met Goal 4:: LTG: PT. to have 5/5 R hip strength without increase in symptoms. Goal Time Frame: 4-6 Weeks Goal Progress: Goal Met Goal 5:: LTG: Pt. to have symmetrical quad strength between BLEs Goal Time Frame: 4-6 Weeks Goal Progress: Not Progressing Goal 6:: LTG: Pt. to complete floor transfer from half kneeling allowing for increased ability to complete work duties. Goal Time Frame: 4-6 Weeks Goal Progress: Progressing Anticipated Interventions Anticipated Interventions Patient/Client Instruction: Educate patient on: Condition, Plan of Care, Risk Factors and Benefits of Fitness Program For the Purpose of:: To improve decision making, To facilitate caregiver knowledge, To improve self management, To prevent re-injury, To improve ability to perform tasks related to life management and To improve tolerance to ADL's Therapeutic Exercise to Include: Strength training, Power training, Endurance training, Flexibilty training, Gait and locomotor training, Passive ROM, Active ROM and Dynamic Lumbar Stabilization For the Purpose of:: To decrease pain, To decrease swelling/inflammation, To increase ROM, To improve nutrient delivery to tissue, To increase oxygenation perfusion, To improve muscle performance and motor function, To improve ability to perform ADL's, To improve health of tissue, To decrease soft tissue restriction, To increase flexibility/ROM, To improve endurance and To improve balance Cryotherapy (ice pack, ice massage): Yes Vasopneumatic device: Yes For the Purpose of:: To decrease pain, To decrease swelling/inflammation and To increase ROM Re-Evaluation Ending Re-evaluation ending: Please do not hesitate to contact me at [phone] by phone or if you have questions or concerns regarding this new plan of care! Sincerely, Narinder Sanchez, DPT
--- NOTE | 2024-12-15 19:00 | HP.PTDCSUM ---
Discharge Summary D/C summary: It has been my pleasure to treat NATALIE BRIONES referred by Dr. Jigar Madrid MD, with the diagnosis of R quad tendon repair, DOS: 07/20/24 for a total of 29 visit(s). Discharge Date: 12/15/24 Please see the following information for a summary of their discharge status. Subjective Subjective: Pt. reports overall doing well, 70% better overall. Pt. still has trouble with crawling under trunk and getting back up. Pt. is able to complete it, but difficult. Pt. reports no much pain, but still has some weakness. Pt. reports fatigue rapid fatigue. Pain RLE: Pain Intensity (Out of 10): 0 Overall Improvement % Improvement: 70 Objective Objective/Function: ROM: 0-0-125deg. MMT: RLE: knee: ext 48#, flexion 32#; hip: flexion 62# LLE: knee: ext 62#, flexion 31#; hip: flexion 59# gait: fairly normal gait pattern, symmetrical but does tend to take decreased step length. STAIRS: normal, mild difficulty with controlled eccentric lowering, but able to complete without use of HRs Pt. is able to complete floor transfer, from half kneeling. Overall he is doing well. I talked with him about continued strengthening. He agrees. He plans on progressing with squat progression and steps for quad strengthening. Goals Goal 1:: LTG: Pt. to be I with HEP. Goal Progress: Goal Met Goal 2:: LTG: Pt. to have increased R knee flexion to 90deg. NEW GOAL (10/20/24): Pt. to have 105deg of R knee flexion allowing for increased ability to complete floor transfers, descend stairs and sit to lower surfaces. Goal Progress: Goal Met Goal 3:: LTG: Pt. to have normalized gait pattern with use of TROM brace locked in extension. Goal Progress: Goal Met Goal 4:: LTG: PT. to have 5/5 R hip strength without increase in symptoms. Goal Progress: Goal Met Goal 5:: LTG: Pt. to have symmetrical quad strength between BLEs Goal Progress: Progressing Goal 6:: LTG: Pt. to complete floor transfer from half kneeling allowing for increased ability to complete work duties. Goal Progress: Goal Met Plan Plan: Pt. will DC from PT at this point in time. All goals have been met. D/C Information Discharge Comments: Pt. has met all goals at this point in time. d/c sentence: If there are questions or concerns regarding this patient's physical therapy, please feel free to call me at [phone]. Thank you for the referral of this patient. Sincerely, Narinder Sanchez, DPT Balance/Gait/Functional tests Balance/Special Test Scores Lower Extremity Functional Score: 49 Improvement % Improvement: 70
== END 2024-12-15 19:00 | disposition home or self-care (01) ==
LOC: PT 18:00
PROVIDERS: PCP Nurse Practitioner Family; Referring Provider Orthopaedic Surgery Sports Medicine; Visit Provider Orthopaedic Surgery Sports Medicine
DX: S76.111D Strain of right quadriceps muscle, fascia and tendon, subsequent encounter (principal)
CPT/HCPCS: 97110; 97140; 97161; 97530